=== PATIENT | female | born 1995 | race African-American/Black ===

== ENCOUNTER 2018-10-23 22:46 | Observation (INO) ==
[2018-10-23] MEDS ORDERED: LACTATED RINGERS 1,000 ML IV ONE (23:17)
[2018-10-23] MEDS ORDERED: ACETAMINOPHEN 500 MG TABLET PO STA (23:24)
[2018-10-23 23:36] LABS: Basophils # 0.1 10*3/uL (0.0-0.2); Basophils % 0.3 % (0.0-0.8); Eosinophils % 0.1 % (0.00-10.9); Hemoglobin 9.5 GM/DL (12.0-16.0); Immature Granulocytes % 0.7 %; Immature Granulocytes Absolute 0.13 #; Lymphocytes # 2.9 10*3/uL (1.4-4.0); Lymphocytes % 15.1 % (21.3-54.2); Mean Corpuscular HGB Conc 33.9 GM/DL (32-36); Mean Corpuscular Volume 80.2 FL (87-102); Mean Platelet Volume 10.4 FL (9.6-12.0); Monocytes % 5.2 % (1.7-12.7); Neutrophils % 78.6 % (38.7-73.9); Platelet Count 182 T/CUMM (130-400); Red Blood Count 3.49 MC/CUMM (3.8-5.5); Red Cell Distribution Width 13.2 % (9.3-17.3)
[2018-10-24 00:02] LABS: Calcium 8.6 MG/DL (8.5-10.1); Osmolality,Calculated 263.4 MOS/KG (273-304)
[2018-10-24 01:07] LABS: Apearance,Urine Slightly Hazy (Clear); Bilirubin,Urine Negative (Negative); Blood, Urine Negative (Negative); Glucose,Urine (UA) Negative (Negative); Ketones,Urine 80 mg/dL (Negative); Nitrite,Urine Negative (Negative); Protein,Urine 100 MG/DL; RBC,Urine 1 /HPF (0-4); Squamous Epithelial Cell,Urine Few /HPF (0-10); Urine Color Yellow (Yellow); Urine Specific Gravity 1.023 (1.001-1.035); WBC,Urine 18 /HPF (0-6)
[2018-10-24] MEDS ORDERED: CEPHALEXIN 50 MG/ML 100 ML/BOTTLE PO STA (01:33)
[2018-10-24] MEDS ORDERED: cefTRIAXone 1,000 MG in SODIUM CHLORIDE 0.9% 100 ML IV STA (01:50)
[2018-10-24] MEDS ORDERED: OSELTAMIVIR 75 MG CAPSULE PO ONE (01:50)
[2018-10-24] MEDS ORDERED: ACETAMINOPHEN 325 MG TABLET PO PRN (01:51)
[2018-10-24] MEDS ORDERED: MAGNESIUM HYDROXIDE SUSP 30 ML UDCUP PO PRN (01:51)
[2018-10-24] MEDS: POTASSIUM CHLORIDE 20 MEQ/15 ML UDCUP PO SCH ×3 (01:51→10:54)
[2018-10-24] MEDS: LACTATED RINGERS 1,000 ML IV SCH ×2 (03:09→10:27)
[2018-10-24] MEDS: ONDANSETRON 4 MG/2 ML VIAL IV PRN ×2 (03:10→10:30)
[2018-10-24] MEDS ORDERED: KETOROLAC 15 MG/1 ML VIAL IM ONE (03:50)
[2018-10-24 15:35] VITALS: BP 105/54
== END 2018-10-24 16:14 | disposition home or self-care (01) ==
LOC: N.EDINP 22:46 → N.ED 22:46 → N.5E 10-24 02:09
PROVIDERS: ADMIT Obstetrics & Gynecology; ATTEND Obstetrics & Gynecology